=== PATIENT | female | born 1975 | race Caucasian/White ===

== ENCOUNTER 2017-02-21 22:29 | Inpatient (IN) | payer OTHER ==
[~2017-02-21] VITALS: Ht 165.1 cm; Wt 48.0 kg
[~2017-02-21 22:29] MED LIST: OMEP40CA6 PO
[2017-02-22 00:53] VITALS: BP 122/74; PULSE 129; RESP 21
[2017-02-22] MEDS ORDERED: ACETAMINOPHEN 325 MG TAB PO PRN (02:00)
[2017-02-22] MEDS ORDERED: traMADol 50 MG TAB PO PRN (02:00)
[2017-02-22] MEDS: ONDANSETRON 4 MG INJ IV PRN (02:08)
[2017-02-22] MEDS: morphine 4 MG/ML VIAL IV PRN ×3 (02:08→20:55)
[2017-02-22] MEDS: SOD CHLORIDE 0.9% 1,000 ML IV SCH ×2 (02:48→11:38)
[2017-02-22 05:54] LABS: ADD SCAN DIFF NO; BASOPHILS % 0.2 % (0.0-2.0); EOSINOPHILS # 0.1 10^3/ul (0.0-0.5); EOSINOPHILS % 0.4 % (0.0-7.0); HEMATOCRIT 34.3 % (37.0-47.0); HEMOGLOBIN 11.4 g/dl (12.0-16.0); LYMPHOCYTES # 1.1 10^3/ul (0.8-2.9); LYMPHOCYTES % 6.7 % (15.0-51.0); MEAN CORPUSCULAR HEMOGLOBIN 30.2 pg (29.0-33.0); MEAN CORPUSCULAR HGB CONC 33.2 g/dl (32.0-37.0); MEAN CORPUSCULAR VOLUME 90.7 fl (82.0-101.0); MEAN PLATELET VOLUME 10.2 fl (7.4-10.4); MONOCYTES % 6.1 % (0.0-11.0); NEUTROPHIL # 14.6 10^3/ul (1.6-7.5); PLATELET COUNT 158 10^3/UL (140-415); RED BLOOD COUNT 3.78 10^6/ul (4.20-5.40); RED CELL DISTRIBUTION WIDTH 13.4 % (11.5-14.5)
[2017-02-22 06:01] LABS: POTASSIUM 3.9 mmol/L (3.5-5.1)
[2017-02-22 06:03] LABS: CREATININE 0.7 mg/dl (0.44-1.00)
[2017-02-22 06:04] LABS: CALCIUM 8.3 mg/dl (8.4-10.2)
[2017-02-22] MEDS: PANTOPRAZOLE 40 MG INJ IV SCH (06:18)
[2017-02-22 08:37] VITALS: BP 118/77; RESP 18
[2017-02-22] MEDS ORDERED: CYCLOBENZAPRINE 10 MG TAB PO SCH (09:00)
[2017-02-22] MEDS: CYCLOBENZAPRINE 10 MG TAB PO SCH ×3 (09:17→20:55)
[2017-02-22] MEDS: LISINOPRIL 10 MG TAB PO SCH (09:17)
[2017-02-22] MEDS ORDERED: TOBRAMYCIN IV PER PHARMACY XX SCH (10:00)
[2017-02-22] MEDS: LEVOFLOXACIN 500MG/D5W (PMX) 100 ML IVPB SCH (11:38)
[2017-02-22] MEDS: TOBRAMYCIN 250 MG in SOD CHLORIDE 0.9% 100 ML IVPB SCH (13:22)
--- NOTE | 2017-02-22 17:11 | QN ---
Documentation Comment [id number] MARISA CUADRA MD February 22, 2017 17:11
--- NOTE | 2017-02-22 19:01 | HP ---
DATE OF ADMISSION: 02/22/2017 HISTORY OF PRESENT ILLNESS: Madhavi Lama is a 41-year-old female, initially was taken to [facility]. She was complaining of fever and chills, and back pain and some dysuria. The patient 's temperature was 36.9. The patient's pulse 62, blood pressure 133/74. The patient was noted to h ave urinalysis done, shows cloudy urine, WBC few, bacteria, 3+. The patient had a sodium of 138, po tassium 3.6, creatinine 0.82, glucose 133. The patient also noted to have respirations of 19. The patient was transferred to [facility] for further management. The patient's scan shows small right ovarian cyst with mild prominence of the right renal pelvis and right ureter. Ult rasound of the abdomen shows normal study. The patient was transferred with a diagnosis of pyelonep hritis. ALLERGY HISTORY: PENICILLIN. FAMILY HISTORY: Noncontributory. SOCIAL HISTORY: . MEDICATION HISTORY: Omeprazole. REVIEW OF SYSTEMS: HEENT: Unremarkable. RESPIRATORY: Unremarkable. CARDIOVASCULAR: Unremarkable. ABDOMEN: No hematuria. The patient has right flank pain. Abdomen unremarkable except as mentioned above. PHYSICAL EXAMINATION: GENERAL: The patient is awake, alert. VITAL SIGNS: Pulse 100, blood pressure 100/74, temperature 99.1. HEAD: Atraumatic, normocephalic. Pupils equal, reactive to light. NECK: Supple. No JVD. LUNGS: Clear. CARDIOVASCULAR: S1, S2 are normal. ABDOMEN: Soft, nontender. Bowel sounds present. No palpable mass. Right flank pain noted. EXTREMITIES: There is no cyanosis, clubbing, or edema. CENTRAL NERVOUS SYSTEM: The patient is awake, alert, no focal deficit. LABORATORY DATA: WBC 17, hematocrit 34.3. Sodium 130, potassium 3.9. IMPRESSION: 1. The patient has possible pyelonephritis. 2. Leukocytosis. 3. The patient's other diagnosis includes a . PLAN: Give this patient IV fluid. The patient is on tobramycin. The patient is on levofloxacin. The patient is on Flexeril, Protonix, IV fluid. UA C and S will be repeated. Dictated By: MARISA HACKETT/COLIN Conf#: [id number] DID#: [id number]
[2017-02-22 20:14] VITALS: BP 108/62; RESP 18
[2017-02-23] MEDS: SOD CHLORIDE 0.9% 1,000 ML IV SCH ×3 (00:38→17:42)
[2017-02-23] MEDS: PANTOPRAZOLE 40 MG INJ IV SCH (05:40)
[2017-02-23 05:42] LABS: ADD SCAN DIFF NO
[2017-02-23 06:02] LABS: BASOPHILS % 0.1 % (0.0-2.0); EOSINOPHILS # 0.1 10^3/ul (0.0-0.5); EOSINOPHILS % 0.6 % (0.0-7.0); HEMATOCRIT 33.6 % (37.0-47.0); LYMPHOCYTES # 1.2 10^3/ul (0.8-2.9); LYMPHOCYTES % 13.1 % (15.0-51.0); MEAN CORPUSCULAR HGB CONC 32.7 g/dl (32.0-37.0); MEAN CORPUSCULAR VOLUME 91.6 fl (82.0-101.0); MEAN PLATELET VOLUME 10.4 fl (7.4-10.4); MONOCYTE # 0.9 10^3/ul (0.3-0.9); MONOCYTES % 10.4 % (0.0-11.0); NEUTROPHIL # 6.7 10^3/ul (1.6-7.5); NEUTROPHILS % 75.3 % (39.0-77.0); PLATELET COUNT 153 10^3/UL (140-415); RED BLOOD COUNT 3.67 10^6/ul (4.20-5.40); RED CELL DISTRIBUTION WIDTH 13.6 % (11.5-14.5); WHITE BLOOD COUNT 8.9 10^3/ul (4.8-10.8)
[2017-02-23 06:14] LABS: ALBUMIN 2.9 g/dl (3.3-4.9); POTASSIUM 3.7 mmol/L (3.5-5.1)
[2017-02-23 06:16] LABS: CREATININE 0.81 mg/dl (0.44-1.00)
[2017-02-23 06:17] LABS: ALBUMIN/GLOBULIN RATIO 0.9; BILIRUBIN,INDIRECT 0.2 mg/dl (0-1.1); BILIRUBIN,TOTAL 0.2 mg/dl (0.2-1.3); TOTAL PROTEIN 6.1 g/dl (6.1-8.1)
[2017-02-23 06:18] LABS: CALCIUM 8.5 mg/dl (8.4-10.2)
[2017-02-23 08:56] VITALS: BP 124/60; RESP 20
[2017-02-23] MEDS: morphine 4 MG/ML VIAL IV PRN ×3 (09:41→22:25)
[2017-02-23] MEDS: CYCLOBENZAPRINE 10 MG TAB PO SCH ×3 (09:42→20:44)
[2017-02-23] MEDS: LEVOFLOXACIN 500MG/D5W (PMX) 100 ML IVPB SCH (09:42)
[2017-02-23] MEDS: LISINOPRIL 10 MG TAB PO SCH (09:42)
[2017-02-23] MEDS: TOBRAMYCIN 250 MG in SOD CHLORIDE 0.9% 100 ML IVPB SCH (12:20)
[2017-02-23 20:26] VITALS: BP 112/72; RESP 18
--- NOTE | 2017-02-23 23:19 | PN ---
Date/Time of Note Date/Time of Note DATE: 02/23/17 TIME: 23:18 Assessment/Plan VTE Prophylaxis VTE Prophylaxis Intervention: other Lines/Catheters IV Catheter Type (from [facility]): Peripheral IV Urinary Cath still in place: No Assessment/Plan Chief Complaint/Hosp Course IMPRESSION: 1. The patient has possible pyelonephritis. 2. Leukocytosis. 3. The patient's other diagnosis includes a . plan antibiotic Problems: Subjective 24 Hr Interval Summary Respiratory: no complaints Gastrointestinal: no complaints Genitourinary: no complaints Exam/Review of Systems Vital Signs Vitals Vital Signs Date Time Temp Pulse Resp B/P Pulse Ox O2 Delivery O2 Flow Rate FiO2 02/23/17 20:26 98.7 110 18 112/72 96 02/22/17 00:53 Room Air Intake and Output 02/22/17 02/22/17 02/23/17 15:00 23:00 07:00 Intake Total 1006.25 ml 1370 ml 2000 ml Output Total 850 ml Balance 1006.25 ml 1370 ml 1150 ml Exam Neck: supple Respiratory: clear to auscultation Cardiovascular: regular rate and rhythm Gastrointestinal: soft Results Result Diagram: 02/23/17 0520 02/23/17 0520 Results 24 hrs Laboratory Tests Test 02/23/17 05:20 White Blood Count 8.9 # Red Blood Count 3.67 L Hemoglobin 11.0 L Hematocrit 33.6 L Mean Corpuscular Volume 91.6 Mean Corpuscular Hemoglobin 30.0 Mean Corpuscular Hemoglobin Concent 32.7 Red Cell Distribution Width 13.6 Platelet Count 153 Mean Platelet Volume 10.4 Neutrophils % 75.3 Lymphocytes % 13.1 L Monocytes % 10.4 Eosinophils % 0.6 Basophils % 0.1 Nucleated Red Blood Cells % 0.0 Neutrophils # 6.7 Lymphocytes # 1.2 Monocytes # 0.9 Eosinophils # 0.1 Basophils # 0.0 Nucleated Red Blood Cells # 0.0 Sodium Level 140 Potassium Level 3.7 Chloride Level 106 Carbon Dioxide Level 25 Anion Gap 13 Blood Urea Nitrogen 5 L Creatinine 0.81 Glucose Level 120 Calcium Level 8.5 Total Bilirubin 0.2 Direct Bilirubin 0.00 Indirect Bilirubin 0.2 Aspartate Amino Transf (AST/SGOT) 25 Alanine Aminotransferase (ALT/SGPT) 34 Alkaline Phosphatase 73 Total Protein 6.1 Albumin 2.9 L Globulin 3.20 Albumin/Globulin Ratio 0.90 Medications Medications Current Medications Sodium Chloride (NS) 1,000 ml @ 100 mls/hr Q10H IV Last administered on 12:21; Admin Dose 100 MLS/HR; Start 02/22/17 at 02:00 Morphine Sulfate (morphine) 3 mg Q4H PRN IV pain Last administered on 22:25; Admin Dose 3 MG; Start 02/22/17 at 02:00 Ondansetron HCl (Zofran Inj) 4 mg Q6H PRN IV NAUSEA AND/OR VOMITING Last administered on 02/22/17 02:08; Admin Dose 4 MG; Start 02/22/17 at 02:00 Acetaminophen (Tylenol Tab) 650 mg Q4H PRN PO PAIN AND OR ELEVATED TEMP Last administered on 02/22/17 13:22; Admin Dose 650 MG; Start 02/22/17 at 02:00 Tramadol HCl (Ultram) 50 mg Q6H PRN PO PAIN; Start 02/22/17 at 02:00 Lisinopril (Zestril) 10 mg DAILY PO Last administered on 02/23/17 09:42; Admin Dose 10 MG; Start 02/22/17 at 09:00 Cyclobenzaprine HCl (Flexeril) 10 mg TID PO Last administered on 02/23/17 20: 44; Admin Dose 10 MG; Start 02/22/17 at 09:00 Tobramycin TOBRAMYCIN PER PHARMACY NOTE XX ; Start 02/22/17 at 10:00 Levofloxacin/ Dextrose 100 ml @ 100 mls/hr Q24H IVPB Last administered on 02/23 09:42; Admin Dose 100 MLS/HR; Start 02/22/17 at 10:00 Tobramycin/Sodium Chloride (Tobramycin/NS) 106.25 ml @ 103.75 mls/hr Q24H IVPB Last administered on 02/23/17 12:20; Admin Dose 103.75 MLS/HR; Start at 12:00 Pantoprazole (Protonix Tab) 40 mg DAILY@06 PO ; Start 02/24/17 at 06:00 MARISA CUADRA MD February 23, 2017 23:19
[2017-02-24] MEDS: PANTOPRAZOLE (EC) 40 MG TAB PO SCH (05:32)
[2017-02-24] MEDS: SOD CHLORIDE 0.9% 1,000 ML IV SCH ×3 (05:34→17:09)
[2017-02-24 08:11] VITALS: BP 109/75; RESP 20
[2017-02-24] MEDS: LISINOPRIL 10 MG TAB PO SCH (08:16)
[2017-02-24] MEDS: CYCLOBENZAPRINE 10 MG TAB PO SCH ×3 (08:16→20:29)
[2017-02-24] MEDS: LEVOFLOXACIN 500MG/D5W (PMX) 100 ML IVPB SCH (09:37)
[2017-02-24] MEDS: morphine 4 MG/ML VIAL IV PRN ×2 (09:37→17:08)
[2017-02-24] MEDS: TOBRAMYCIN 250 MG in SOD CHLORIDE 0.9% 100 ML IVPB SCH (13:06)
[2017-02-24] MEDS: ONDANSETRON 4 MG INJ IV PRN ×2 (17:09→23:12)
[2017-02-24 20:49] VITALS: BP 118/82; RESP 16
--- NOTE | 2017-02-24 22:46 | PN ---
Date/Time of Note Date/Time of Note DATE: 02/24/17 TIME: 22:46 Assessment/Plan VTE Prophylaxis VTE Prophylaxis Intervention: other Lines/Catheters IV [facility] (from [facility] Peripheral IV Urinary Cath still in place: No Assessment/Plan Chief Complaint/Hosp Course IMPRESSION: 1. The patient has possible pyelonephritis. 2. Leukocytosis. 3. The patient's other diagnosis includes a . plan antibiotic home soon Problems: Subjective 24 Hr Interval Summary Cardiovascular: no complaints Gastrointestinal: no complaints Exam/Review of Systems Vital Signs Vitals Vital Signs Date Time Temp Pulse Resp B/P Pulse Ox O2 Delivery O2 Flow Rate FiO2 02/24/17 20:49 97.5 104 16 118/82 96 02/22/17 00:53 Room Air Intake and Output 02/23/17 02/23/17 02/24/17 15:00 23:00 07:00 Intake Total 706.25 ml 750 ml 1350 ml Output Total 500 ml Balance 706.25 ml 750 ml 850 ml Exam Respiratory: clear to auscultation Cardiovascular: regular rate and rhythm Gastrointestinal: soft Results Result Diagram: 02/23/17 0520 02/23/17 0520 Medications Medications Current Medications Sodium Chloride (NS) 1,000 ml @ 100 mls/hr Q10H IV Last administered on 17:09; Admin Dose 100 MLS/HR; Start 02/22/17 at 02:00 Morphine Sulfate (morphine) 3 mg Q4H PRN IV pain Last administered on 17:08; Admin Dose 3 MG; Start 02/22/17 at 02:00 Ondansetron HCl (Zofran Inj) 4 mg Q6H PRN IV NAUSEA AND/OR VOMITING Last administered on 02/24/17 17:09; Admin Dose 4 MG; Start 02/22/17 at 02:00 Acetaminophen (Tylenol Tab) 650 mg Q4H PRN PO PAIN AND OR ELEVATED TEMP Last administered on 02/22/17 13:22; Admin Dose 650 MG; Start 02/22/17 at 02:00 Tramadol HCl (Ultram) 50 mg Q6H PRN PO PAIN; Start 02/22/17 at 02:00 Lisinopril (Zestril) 10 mg DAILY PO Last administered on 02/23/17 09:42; Admin Dose 10 MG; Start 02/22/17 at 09:00 Cyclobenzaprine HCl (Flexeril) 10 mg TID PO Last administered on 02/24/17 20: 29; Admin Dose 10 MG; Start 02/22/17 at 09:00 Tobramycin TOBRAMYCIN PER PHARMACY NOTE XX ; Start 02/22/17 at 10:00 Levofloxacin/ Dextrose 100 ml @ 100 mls/hr Q24H IVPB Last administered on 02/24 09:37; Admin Dose 100 MLS/HR; Start 02/22/17 at 10:00 Tobramycin/Sodium Chloride (Tobramycin/NS) 106.25 ml @ 103.75 mls/hr Q24H IVPB Last administered on 02/24/17 13:06; Admin Dose 103.75 MLS/HR; Start at 12:00 Pantoprazole (Protonix Tab) 40 mg DAILY@06 PO Last administered on 02/24/17 05 :32; Admin Dose 40 MG; Start 02/24/17 at 06:00 MARISA CUADRA MD February 24, 2017 22:46
[2017-02-25] MEDS: SOD CHLORIDE 0.9% 1,000 ML IV SCH ×2 (04:12→17:19)
[2017-02-25] MEDS: morphine 4 MG/ML VIAL IV PRN ×3 (04:29→17:24)
[2017-02-25] MEDS: PANTOPRAZOLE (EC) 40 MG TAB PO SCH (05:53)
[2017-02-25 07:10] VITALS: BP 101/74; RESP 16
[2017-02-25] MEDS: LISINOPRIL 10 MG TAB PO SCH (08:21)
[2017-02-25] MEDS: CYCLOBENZAPRINE 10 MG TAB PO SCH ×2 (08:21→13:23)
[2017-02-25] MEDS: LEVOFLOXACIN 500MG/D5W (PMX) 100 ML IVPB SCH (09:42)
--- NOTE | 2017-02-25 12:01 | PN ---
Date/Time of Note Date/Time of Note DATE: 02/25/17 TIME: 12:00 Assessment/Plan VTE Prophylaxis VTE Prophylaxis Intervention: ambulation Lines/Catheters IV Catheter Type (from [facility]): Peripheral IV Urinary Cath still in place: No Assessment/Plan Chief Complaint/Hosp Course 1. The patient has right kidney pyelonephritis. 2. Leukocytosis. 3. hs Problems: Assessment/Plan 1. Continue a/b Subjective 24 Hr Interval Summary Constitutional: improved, no complaints Respiratory: no complaints Cardiovascular: no complaints Gastrointestinal: decreased appetite Genitourinary: flank pain (right side) Exam/Review of Systems Vital Signs Vitals Vital Signs Date Time Temp Pulse Resp B/P Pulse Ox O2 Delivery O2 Flow Rate FiO2 02/25/17 07:10 98.3 90 16 101/74 98 02/22/17 00:53 Room Air Intake and Output 02/24/17 02/24/17 02/25/17 15:00 23:00 07:00 Intake Total 206.25 ml 1780 ml 1660 ml Balance 206.25 ml 1780 ml 1660 ml Exam Constitutional: alert, oriented Psych: no complaints Head: normocephalic Respiratory: clear to auscultation Cardiovascular: regular rate and rhythm Genitourinary - Female: CVA tenderness (right side), nl adnexae Results Result Diagram: 02/23/1751902/23/17519 Medications Medications Current Medications Sodium Chloride (NS) 1,000 ml @ 100 mls/hr Q10H IV Last administered on 04:12; Admin Dose 100 MLS/HR; Start 02/22/17 at 02:00 Morphine Sulfate (morphine) 3 mg Q4H PRN IV pain Last administered on 10:30; Admin Dose 3 MG; Start 02/22/17 at 02:00 Ondansetron HCl (Zofran Inj) 4 mg Q6H PRN IV NAUSEA AND/OR VOMITING Last administered on 02/24/17 23:12; Admin Dose 4 MG; Start 02/22/17 at 02:00 Acetaminophen (Tylenol Tab) 650 mg Q4H PRN PO PAIN AND OR ELEVATED TEMP Last administered on 02/22/17 13:22; Admin Dose 650 MG; Start 02/22/17 at 02:00 Tramadol HCl (Ultram) 50 mg Q6H PRN PO PAIN; Start 02/22/17 at 02:00 Lisinopril (Zestril) 10 mg DAILY PO Last administered on 02/23/17 09:42; Admin Dose 10 MG; Start 02/22/17 at 09:00 Cyclobenzaprine HCl (Flexeril) 10 mg TID PO Last administered on 02/25/17 08: 21; Admin Dose 10 MG; Start 02/22/17 at 09:00 Tobramycin TOBRAMYCIN PER PHARMACY NOTE XX ; Start 02/22/17 at 10:00 Levofloxacin/ Dextrose 100 ml @ 100 mls/hr Q24H IVPB Last administered on 02/25 09:42; Admin Dose 100 MLS/HR; Start 02/22/17 at 10:00 Tobramycin/Sodium Chloride (Tobramycin/NS) 106.25 ml @ 103.75 mls/hr Q24H IVPB Last administered on 02/24/17 13:06; Admin Dose 103.75 MLS/HR; Start at 12:00 Pantoprazole (Protonix Tab) 40 mg DAILY@06 PO Last administered on 02/25/17 05 :53; Admin Dose 40 MG; Start 02/24/17 at 06:00 CYRUS FALK February 25, 2017 12:01
[2017-02-25] MEDS: ONDANSETRON 4 MG INJ IV PRN (13:23)
[2017-02-25] MEDS: TOBRAMYCIN 250 MG in SOD CHLORIDE 0.9% 100 ML IVPB SCH (13:56)
--- NOTE | 2017-02-25 18:07 | PDOCDIS ---
Discharge Instructions CONDITION Patient Condition: Stable HOME CARE INSTRUCTIONS: Special Diet: full liquids ACTIVITY: Activity Restrictions: Slowly Increase Activity FOLLOW UP/APPOINTMENTS Appointments f/u own pcp 1 wk MARISA CUADRA MD February 25, 2017 18:07
[2017-02-25] MEDS ORDERED: SULF1TAB31 PO (18:08)
== END 2017-02-25 18:56 | disposition home or self-care (01) | DRG 690 ==
LOC: PP2 02-22 00:39
PROVIDERS: ADMIT Internal Medicine Nephrology; ATTEND Internal Medicine Nephrology
DX: N12 Tubulo-interstitial nephritis, not specified as acute or chronic (principal)
CPT/HCPCS: 80048; 80053; 80200; 85025; 87086; C9113; J1956; J2270; J2405; J3260; J7030

== ENCOUNTER 2017-06-15 22:53 | Inpatient (IN) | payer OTHER ==
[~2017-06-15] VITALS: Ht 149.9 cm; Wt 52.0 kg
[~2017-06-15 22:53] MED LIST changes: +SULF1TAB31 PO
[2017-06-16 00:25] VITALS: Ht 149.9 cm; Wt 52.0 kg
[2017-06-16 01:10] VITALS: BP 117/81; RESP 19
[2017-06-16] MEDS ORDERED: LORATADINE 10 MG TAB PO PRN (02:00)
[2017-06-16] MEDS ORDERED: CYCLOBENZAPRINE 10 MG TAB PO PRN (02:00)
[2017-06-16] MEDS: morphine 2 MG INJ IV PRN ×5 (02:15→20:05)
[2017-06-16] MEDS: CEFTRIAXONE 1 GM/50 ML (PMX) 50 ML IVPB SCH (02:17)
[2017-06-16] MEDS: SOD CHLORIDE 0.9% 1,000 ML IV SCH (02:17)
[2017-06-16 05:58] LABS: ABNORMAL IP MESSAGE 1; BASOPHILS % 0.4 % (0.0-2.0); HEMATOCRIT 35.8 % (37.0-47.0); HEMOGLOBIN 11.8 g/dl (12.0-16.0); LYMPHOCYTES # 0.5 10^3/ul (0.8-2.9); MEAN CORPUSCULAR HEMOGLOBIN 28.7 pg (29.0-33.0); MEAN CORPUSCULAR VOLUME 87.1 fl (82.0-101.0); MEAN PLATELET VOLUME 10.6 fl (7.4-10.4); MONOCYTE # 0.3 10^3/ul (0.3-0.9); MONOCYTES % 13.2 % (0.0-11.0); NEUTROPHIL # 1.7 10^3/ul (1.6-7.5); PLATELET COUNT 98 10^3/UL (140-415); RED BLOOD COUNT 4.11 10^6/ul (4.20-5.40); RED CELL DISTRIBUTION WIDTH 13.2 % (11.5-14.5); WHITE BLOOD COUNT 2.5 10^3/ul (4.8-10.8)
[2017-06-16] MEDS ORDERED: PANTOPRAZOLE 40 MG INJ IV SCH (06:00)
[2017-06-16 06:08] LABS: POSITIVE DIFF @See below
[2017-06-16 06:38] LABS: ALBUMIN 3.1 g/dl (3.3-4.9); ALBUMIN/GLOBULIN RATIO 1.1; BILIRUBIN,INDIRECT 0.1 mg/dl (0-1.1); BILIRUBIN,TOTAL 0.1 mg/dl (0.2-1.3); CALCIUM 8.1 mg/dl (8.4-10.2); CREATININE 0.69 mg/dl (0.44-1.00); POTASSIUM 3.6 mmol/L (3.5-5.1); TOTAL PROTEIN 5.9 g/dl (6.1-8.1)
[2017-06-16 08:00] VITALS: BP 129/73; RESP 20
[2017-06-16] MEDS ORDERED: VANCOMYCIN IV PER PHARMACY XX SCH (08:00)
[2017-06-16] MEDS ORDERED: VANCOMYCIN 1 GM (PMX) 250 ML IVPB SCH (08:00)
[2017-06-16] MEDS: BENAZEPRIL 10 MG TAB PO SCH (08:49)
[2017-06-16] MEDS: HYDROCHLOROTHIAZIDE 25 MG TAB PO SCH (08:49)
[2017-06-16] MEDS: ACETAMINOPHEN 325 MG TAB PO PRN ×2 (09:15→20:14)
[2017-06-16] MEDS ORDERED: VANCOMYCIN 1.25 GM in SOD CHLORIDE 0.9% 250 ML IVPB SCH (09:30)
[2017-06-16 14:00] VITALS: BP 105/59; RESP 18
--- NOTE | 2017-06-16 17:29 | QN ---
Documentation Comment [id number] MARISA CUADRA MD Jun 16, 2017 17:29
[2017-06-16 19:23] LABS: ADD UMIC YES; UR ASCORBIC ACID NEGATIVE (NEGATIVE); UR BACTERIA FEW /HPF (NONE SEEN); UR BILIRUBIN (Dip) NEGATIVE (NEGATIVE); UR BLOOD (Dip) 2+ mg/dL (NEGATIVE); UR CLARITY CLEAR (CLEAR); UR COLOR YELLOW (YELLOW); UR GLUCOSE (Dip) NEGATIVE (NEGATIVE); UR KETONES (Dip) 1+ mg/dL (NEGATIVE); UR LEUKOCYTE ESTERASE (Dip) NEGATIVE Leu/ul (NEGATIVE); UR NITRITE (Dip) NEGATIVE (NEGATIVE); UR RBC 7 /HPF (0-5); UR SPECIFIC GRAVITY (Dip) 1.011 (1.003-1.030); UR SQUAMOUS EPITHELIAL CELL FEW /HPF (FEW); UR TOTAL PROTEIN (Dip) NEGATIVE (NEGATIVE); UR UROBILINOGEN (Dip) NEGATIVE (NEGATIVE)
--- NOTE | 2017-06-16 20:50 | HP ---
DATE OF ADMISSION: 06/16/2017 HISTORY OF PRESENT ILLNESS: Patient is a 42-year-old female with history of hypertension, history of degenerative disc disease. Patient sees her pain doctor as an outpatient. Patient had epidural shot almost a month ago. Then, 2-1/2 weeks after the shot, patient developed back pain, pain radiating to the right lower extremity and the lower back, and developed fever. Patient went to [facility] ER where she was evaluated and transferred here. WBC 2.5, hematocrit 35.8, platelet count of 98,000. Sodium 137, potassium 3.6, albumin 3.1. MRI of the spine is pending. Infectious Disease consultation has been requested from Dr. Lenz. Dr. Gentile is covering for . PAST MEDICAL HISTORY: As mentioned, hypertension, history of epidural shot in the past. ALLERGIES: PENICILLIN. SOCIAL HISTORY: Negative. FAMILY HISTORY: Negative. MEDICATIONS: Patient currently is on benazepril, Flexeril, hydrochlorothiazide, loratadine, morphine, Protonix, Tramadol, vanco. REVIEW OF SYSTEMS: HEENT: Unremarkable. RESPIRATORY: Unremarkable. CVS: Unremarkable. ABDOMEN: As mentioned above. EXTREMITIES: As mentioned. SOLAR INSTALLER TECHNICIAN: Unremarkable except as mentioned. PHYSICAL EXAMINATION: GENERAL: Patient is awake, alert. VITAL SIGNS: Stable. HEENT: Head is atraumatic, normocephalic. Pupils equal, reactive to light. NECK: Supple. There is no JVD. LUNGS: Clear. CARDIAC: S1, S2 normal. ABDOMEN: Soft, nontender. Bowel sounds heard. No palpable mass. EXTREMITIES: No cyanosis, clubbing, edema. SOLAR INSTALLER TECHNICIAN: Patient is awake, alert, moving both upper and lower extremities with low back pain noted. IMPRESSION: 1. Patient has low back pain. 2. Patient has history of degenerative disc disease. 3. Doubt patient has diskitis. 4. History of sciatica. 5. History of hypertension. 6. Neutropenia. PLAN: Give this patient low salt diet. Continue home medication. Infectious Disease consultation, antibiotic, MRI of the lower spine is pending. Dictated By: Carlos Gonzalez MD /medina/theron /Document#: [id number] QUAN
[2017-06-16 21:01] VITALS: BP 108/65; RESP 21
[2017-06-16] MEDS ORDERED: morphine 2 MG INJ IV ONE (22:00)
[2017-06-16] MEDS: VANCOMYCIN 500MG/NS (PMX) 100 ML IVPB SCH (22:00)
[2017-06-16] MEDS ORDERED: morphine 10 MG INJ IM ONE (22:00)
--- NOTE | 2017-06-16 22:06 | RADRPT ---
PROCEDURE: MRI Lumbar Spine without contrast. CLINICAL INDICATION: 42-year-old female with lumbar spine pain after epidural injection. TECHNIQUE: An MRI of the lumbar spine was performed with multiple sequences in the sagittal and ax ial planes without contrast. Images reviewed on a high-resolution PACS system. COMPARISON: None available at the time of dictation. FINDINGS: The alignment of the lumbar spine is normal. No vertebral body subluxation is seen. There is desic cation the L5-S1 disc-space without significant loss of disc-space height. There are no significant discogenic endplate changes at this level. The remaining intervertebral discs are normal in height a nd signal intensity. The vertebral body heights and marrow signal are normal. The conus medullaris is visible at the L1 level and appears grossly normal. The lumbar nerve roots are normal in appea missy. The paraspinal soft tissues are unremarkable. No significant paraspinal soft tissue swelling . L1-L2: The posterior margin of the disc is normal in appearance. No significant disc bulge or prot rusion is evident. The central canal and neural foramina are adequately patent. L2-L3: The posterior margin of the disc is normal in appearance. No significant disc bulge or prot rusion is evident. The central canal and neural foramina are adequately patent. L3-L4: The posterior margin of the disc is normal in appearance. No significant disc bulge or prot rusion is evident. The central canal and neural foramina are adequately patent. L4-L5: There is a 1 mm annular disc bulge without significant indentation on the ventral thecal sac . The thecal sac and lateral recesses are patent. There is mild bilateral facet spondylosis. The neural foramina are patent. L5-S1: There is a 2-3 mm posterior central disc bulge. There is mild narrowing of both lateral rece sses. The central thecal sac is patent measuring 11 mm midline AP diameter. There is mild bilateral facet spondylosis. There is moderate bilateral neural foraminal narrowing. IMPRESSION: 1. Moderate spondylosis at L5-S1 with subsequent mild effacement of both lateral recesses and moder ate bilateral neural foraminal narrowing. No significant central stenosis. 2. The remaining lumbar spine is normal in appearance. 3. No evidence of epidural hemorrhage or sequelae of patient's epidural injection. RPTAT: HGAS .Giancarlo Lawler MD, MD Date Time Electronically viewed and signed by .Giancarlo Lawler MD, MD on 06/16/2017 22:05 .S/
[2017-06-17] MEDS: SOD CHLORIDE 0.9% 1,000 ML IV SCH ×2 (02:00→22:17)
[2017-06-17] MEDS: CEFTRIAXONE 1 GM/50 ML (PMX) 50 ML IVPB SCH (02:38)
[2017-06-17] MEDS: morphine 2 MG INJ IV PRN ×3 (02:49→13:37)
[2017-06-17 02:51] VITALS: BP 105/55; RESP 18
[2017-06-17] MEDS: PANTOPRAZOLE (EC) 40 MG TAB PO SCH (05:37)
[2017-06-17 06:00] LABS: ABNORMAL IP MESSAGE 1; HEMATOCRIT 37.2 % (37.0-47.0); HEMOGLOBIN 12.4 g/dl (12.0-16.0); MEAN CORPUSCULAR HEMOGLOBIN 29.2 pg (29.0-33.0); MEAN CORPUSCULAR HGB CONC 33.3 g/dl (32.0-37.0); MEAN CORPUSCULAR VOLUME 87.5 fl (82.0-101.0); MEAN PLATELET VOLUME 11.5 fl (7.4-10.4); PLATELET COUNT 85 10^3/UL (140-415); RED BLOOD COUNT 4.25 10^6/ul (4.20-5.40); RED CELL DISTRIBUTION WIDTH 13.2 % (11.5-14.5); WHITE BLOOD COUNT 2.6 10^3/ul (4.8-10.8)
[2017-06-17 06:27] LABS: ALBUMIN 3.2 g/dl (3.3-4.9); ALBUMIN/GLOBULIN RATIO 1.1; BILIRUBIN,INDIRECT 0.1 mg/dl (0-1.1); BILIRUBIN,TOTAL 0.1 mg/dl (0.2-1.3); CALCIUM 8.8 mg/dl (8.4-10.2); CREATININE 0.75 mg/dl (0.44-1.00); POTASSIUM 3.1 mmol/L (3.5-5.1); TOTAL PROTEIN 6.1 g/dl (6.1-8.1)
[2017-06-17 06:31] LABS: POSITIVE DIFF @See below
[2017-06-17 08:00] VITALS: BP 107/69; RESP 18
[2017-06-17] MEDS: VANCOMYCIN 500MG/NS (PMX) 100 ML IVPB SCH (08:11)
--- NOTE | 2017-06-17 08:57 | PN ---
Date/Time of Note Date/Time of Note DATE: 06/17/17 TIME: 08:55 Assessment/Plan VTE Prophylaxis VTE Prophylaxis Intervention: ambulation Lines/Catheters IV Catheter Type (from [facility]): [place] Assessment/Plan Chief Complaint/Hosp Course 1. Patient has low back pain. 2. History of degenerative disc disease. 3. R/o diskitis. 4. History of sciatica. 5. Hypertension, controlled. 6. Neutropenia. 7.MRI lumbar area showed : 1). Moderate spondylosis at L5-S1 with subsequent mild effacement of both lateral recesses and moderate bilateral neural foraminal narrowing. No significant central stenosis. 2). The remaining lumbar spine is normal in appearance. 3). No evidence of epidural hemorrhage or sequelae of patient's epidural injection. 8. Hypopotassemia Problems: Assessment/Plan 1. K replacement Subjective 24 Hr Interval Summary Gastrointestinal: no complaints Musculoskeletal: back pain Exam/Review of Systems Vital Signs Vitals Vital Signs Date Time Temp Pulse Resp B/P Pulse Ox O2 Delivery O2 Flow Rate FiO2 06/17/17 08:00 98.3 68 18 107/69 98 Intake and Output 06/16/17 06/16/17 06/17/17 15:00 23:00 07:00 Intake Total 250 ml 1390 ml 1430 ml Balance 250 ml 1390 ml 1430 ml Exam Constitutional: alert, oriented Respiratory: clear to auscultation Cardiovascular: regular rate and rhythm Musculoskeletal: range of motion (decreased lumbar area) Results Result Diagram: 06/17/17 0427 06/17/17 0427 Results 24 hrs Laboratory Tests Test 06/16/17 18:00 06/17/17 04:27 Urine Color YELLOW Urine Clarity CLEAR Urine pH 6.0 Urine Specific [employer] 1.011 Urine Ketones 1+ H Urine Nitrite NEGATIVE Urine Bilirubin NEGATIVE Urine Urobilinogen NEGATIVE Urine Leukocyte Esterase NEGATIVE Urine Microscopic RBC 7 H Urine Microscopic WBC 0 Urine Squamous Epithelial Cells FEW Urine Bacteria FEW A Urine Hemoglobin 2+ H Urine Glucose NEGATIVE Urine Total Protein NEGATIVE White Blood Count 2.6 L Red Blood Count 4.25 Hemoglobin 12.4 Hematocrit 37.2 Mean Corpuscular Volume 87.5 Mean Corpuscular Hemoglobin 29.2 Mean Corpuscular Hemoglobin Concent 33.3 Red Cell Distribution Width 13.2 Platelet Count 85 L Mean Platelet Volume 11.5 H Neutrophils % Lymphocytes % Monocytes % Eosinophils % Basophils % Nucleated Red Blood Cells % 0.0 Neutrophils # Lymphocytes # Monocytes # Eosinophils # Basophils # Nucleated Red Blood Cells # Sodium Level 138 Potassium Level 3.1 L Chloride Level 101 Carbon Dioxide Level 31 Anion Gap 9 Blood Urea Nitrogen 6 L Creatinine 0.75 Glucose Level 98 Calcium Level 8.8 Total Bilirubin 0.1 L Direct Bilirubin 0.00 Indirect Bilirubin 0.1 Aspartate Amino Transf (AST/SGOT) 31 Alanine Aminotransferase (ALT/SGPT) 35 Alkaline Phosphatase 53 Total Protein 6.1 Albumin 3.2 L Globulin 2.90 Albumin/Globulin Ratio 1.10 Medications Medications Current Medications Morphine Sulfate 2 mg 2 mg Q4H PRN IV PAIN Last administered on 06/17/17 08:13 ; Admin Dose 2 MG; Start 06/16/17 at 02:00 Ceftriaxone Sodium 50 ml @ 100 mls/hr Q24H IVPB Last administered on 02:38; Admin Dose 100 MLS/HR; Start 06/16/17 at 02:00 Sodium Chloride (NS) 1,000 ml @ 30 mls/hr Q24H IV Last administered on 02:17; Admin Dose 30 MLS/HR; Start 06/16/17 at 02:00 Tramadol HCl (Ultram) 50 mg Q6H PRN PO PAIN; Start 06/16/17 at 02:00 Cyclobenzaprine HCl (Flexeril) 10 mg BID PRN PO MUSCLE SPASMS; Start 06/16/17 at 02:00 Hydrochlorothiazide (Hydrochlorothiazide) 25 mg DAILY PO Last administered on 08:49; Admin Dose 25 MG; Start 06/16/17 at 09:00 Benazepril HCl (Lotensin) 10 mg DAILY PO Last administered on 06/16/17 08:49; Admin Dose 10 MG; Start 06/16/17 at 09:00 Loratadine (Claritin) 10 mg DAILY PRN PO ALLERGIC REACTION; Start 06/16/17 at 02:00 Acetaminophen 650 mg 650 mg Q6H PRN PO PAIN AND OR ELEVATED TEMP Last administered on 06/16/17 20:14; Admin Dose 650 MG; Start 06/16/17 at 06:30 Vancomycin HCl (Vancocin) 100 ml @ 100 mls/hr Q12H IVPB Last administered on 9 /15/17at 08:11; Admin Dose 100 MLS/HR; Start 06/16/17 at 21:00 Miscellaneous Information (*Rx Drug Level Order Reminder*) VANCO TR LEVEL PRIOR... ONCE ONCE XX ; Start 06/17/17 at 20:00; Stop 06/17/17 at 20:01 Pantoprazole (Protonix Tab) 40 mg DAILY@06 PO Last administered on 06/17/17t 05 :37; Admin Dose 40 MG; Start 06/17/17 at 06:00 CYRUS FALK Jun 17, 2017 08:57
[2017-06-17] MEDS ORDERED: POTASSIUM CHLORIDE 20 MEQ POWDER FOR ORAL SOLN PO ONE (09:00)
[2017-06-17] MEDS: BENAZEPRIL 10 MG TAB PO SCH (09:25)
[2017-06-17] MEDS: HYDROCHLOROTHIAZIDE 25 MG TAB PO SCH (09:26)
[2017-06-17 09:37] LABS: ANISOCYTOSIS 1+ (0-0); GIANT THROMBO% (M) 1 % (0-0); MICROCYTOSIS 1+ (0-0); MONOCYTES % (M) 17 % (0-11); PLATELET ESTIMATE DECREASED; POLYCHROMASIA 3+ (0-0); REACTIVE LYMPHOCYTES% (M) 8 % (0-0)
[2017-06-17 14:00] VITALS: BP 117/74; RESP 20
[2017-06-17] MEDS: HYDROCODONE/APAP (5/325) TAB PO PRN ×2 (17:38→22:47)
[2017-06-17 19:33] VITALS: BP 104/69; RESP 16
--- NOTE | 2017-06-17 21:39 | CONS ---
Date/Time of Note Date/Time of Note DATE: 06/17/17 TIME: 21:38 Assessment/Plan Assessment/Plan Chief Complaint/Hosp Course Pt had + UA at another facility, recommend complete treatment for UTI with oral Cipro Problems: Consultation Date/Type/Reason Admit Date/Time Jun 16, 2017 at 00:01 Initial Consult Date Type of Consultation: ID Exam/Review of Systems Vital Signs Vitals Vital Signs Date Time Temp Pulse Resp B/P Pulse Ox O2 Delivery O2 Flow Rate FiO2 06/17/17 19:33 98.0 93 16 104/69 98 Intake and Output 06/16/17 06/16/17 06/17/17 15:00 23:00 07:00 Intake Total 250 ml 1390 ml 1430 ml Balance 250 ml 1390 ml 1430 ml Results Result Diagram: 06/17/17 0427 06/17/17 0427 Results 24 hrs Laboratory Tests Test 06/17/17 04:27 White Blood Count 2.6 L Red Blood Count 4.25 Hemoglobin 12.4 Hematocrit 37.2 Mean Corpuscular Volume 87.5 Mean Corpuscular Hemoglobin 29.2 Mean Corpuscular Hemoglobin Concent 33.3 Red Cell Distribution Width 13.2 Platelet Count 85 L Mean Platelet Volume 11.5 H Neutrophils % Segmented Neutrophils % (Manual) 31 L Band Neutrophils % (Manual) 5 H Lymphocytes % Lymphocytes % (Manual) 40 Reactive Lymphocytes % (Manual) 8 H Monocytes % Monocytes % (Manual) 17 H Eosinophils % Basophils % Nucleated Red Blood Cells % 0.0 Neutrophils # Neutrophils # (Manual) 0.8 L Band Neutrophils # 0.1 Absolute Lymphocytes (Manual) 1.0 Lymphocytes # Reactive Lymphocytes # 0.2 H Monocytes # Absolute Monocytes (Manual) 0.4 Eosinophils # Basophils # Nucleated Red Blood Cells # Platelet Estimate DECREASED Giant Platelets 1 H Polychromasia 3+ Anisocytosis 1+ Microcytosis 1+ Sodium Level 138 Potassium Level 3.1 L Chloride Level 101 Carbon Dioxide Level 31 Anion Gap 9 Blood Urea Nitrogen 6 L Creatinine 0.75 Glucose Level 98 Calcium Level 8.8 Total Bilirubin 0.1 L Direct Bilirubin 0.00 Indirect Bilirubin 0.1 Aspartate Amino Transf (AST/SGOT) 31 Alanine Aminotransferase (ALT/SGPT) 35 Alkaline Phosphatase 53 Total Protein 6.1 Albumin 3.2 L Globulin 2.90 Albumin/Globulin Ratio 1.10 Medications Medications Current Medications Morphine Sulfate 2 mg 2 mg Q4H PRN IV PAIN Last administered on 06/17/17 13:37 ; Admin Dose 2 MG; Start 06/16/17 at 02:00 Ceftriaxone Sodium 50 ml @ 100 mls/hr Q24H IVPB Last administered on 02:38; Admin Dose 100 MLS/HR; Start 06/16/17 at 02:00 Sodium Chloride (NS) 1,000 ml @ 30 mls/hr Q24H IV Last administered on 02:17; Admin Dose 30 MLS/HR; Start 06/16/17 at 02:00 Tramadol HCl (Ultram) 50 mg Q6H PRN PO PAIN; Start 06/16/17 at 02:00 Cyclobenzaprine HCl (Flexeril) 10 mg BID PRN PO MUSCLE SPASMS; Start 06/16/17 at 02:00 Hydrochlorothiazide (Hydrochlorothiazide) 25 mg DAILY PO Last administered on 09:26; Admin Dose 25 MG; Start 06/16/17 at 09:00 Benazepril HCl (Lotensin) 10 mg DAILY PO Last administered on 06/17/17 09:25; Admin Dose 10 MG; Start 06/16/17 at 09:00 Loratadine (Claritin) 10 mg DAILY PRN PO ALLERGIC REACTION; Start 06/16/17 at 02:00 Acetaminophen (Tylenol Tab) 650 mg Q6H PRN PO PAIN AND OR ELEVATED TEMP Last administered on 06/16/17 20:14; Admin Dose 650 MG; Start 06/16/17 at 06:30 Pantoprazole (Protonix Tab) 40 mg DAILY@06 PO Last administered on 06/17/17 05 :37; Admin Dose 40 MG; Start 06/17/17 at 06:00 Acetaminophen/ Hydrocodone Bitart (Alto (5/325)) 1 tab Q6H PRN PO PAIN Last administered on 06/17/17 17:38; Admin Dose 1 TAB; Start 06/17/17 at 13:30 MANDA DAVIDSON NP Jun 17, 2017 21:39
--- NOTE | 2017-06-18 01:53 | PN ---
DATE: 06/17/2017 SUBJECTIVE DATA: No acute changes. The patient is alert, feels good, looks comfortable. Denies pain. T-max yesterday was 100.6. T-current 98.7, pulse 90, respirations 20, blood pressure 117/74, saturation 98 percent on room air. MICROBIOLOGY: Blood and urine culture negative. DIAGNOSTICS: Lumbar spine MRI revealed moderate spondylosis at L5, S1. No significant stenosis. No evidence of epidural hemorrhage or sequela of the patient's epidural injection. ANTIMICROBIALS: The patient is on IV vancomycin and Rocephin. PHYSICAL EXAMINATION: GENERAL: This is a well nourished, well developed, middle-aged woman, who is alert, in no distress. HEENT: Head atraumatic and normocephalic. Sclerae are anicteric. Buccal mucosa is pink. NECK: Supple. LUNGS: Chest rise is symmetrical. Breath sounds are clear. HEART: S1, S2. ABDOMEN: Soft. Bowel sounds are present. EXTREMITIES: Without cyanosis or edema. SKIN: No jaundice. No cyanosis. ASSESSMENT: 1. Systemic inflammatory response syndrome with fevers, poss 2 to UTI. 2. Leukopenia with thrombocytopenia. 3. Chronic back pain status post epidural and steroid injection, last one was at the beginning of May. 4. History of sciatica. PLAN: The patient remains stable. So far, all cultures have been negative, and no evidence of discitis or osteomyelitis per spinal MRI. Her urinalysis at another facility was +, final cx not available yet. We are going to discontinue vancomycin. Continue Rocephin for now. F/u chest x-ray in a.m. Dictated By: Eve Weems NP /medina/cheli /Document#: [id number] QUAN
[2017-06-18 02:18] VITALS: BP 109/74; RESP 20
[2017-06-18] MEDS: CEFTRIAXONE 1 GM/50 ML (PMX) 50 ML IVPB SCH (02:49)
[2017-06-18] MEDS: traMADol 50 MG TAB PO PRN ×2 (04:36→17:26)
[2017-06-18] MEDS: PANTOPRAZOLE (EC) 40 MG TAB PO SCH (04:36)
[2017-06-18] MEDS: morphine 2 MG INJ IV PRN ×4 (05:15→23:00)
[2017-06-18 05:32] LABS: ABNORMAL IP MESSAGE 1; HEMATOCRIT 36.7 % (37.0-47.0); HEMOGLOBIN 12.6 g/dl (12.0-16.0); MEAN CORPUSCULAR HEMOGLOBIN 29.3 pg (29.0-33.0); MEAN CORPUSCULAR HGB CONC 34.3 g/dl (32.0-37.0); MEAN CORPUSCULAR VOLUME 85.3 fl (82.0-101.0); MEAN PLATELET VOLUME 11.2 fl (7.4-10.4); PLATELET COUNT 94 10^3/UL (140-415); WHITE BLOOD COUNT 3.5 10^3/ul (4.8-10.8)
[2017-06-18 05:45] LABS: POSITIVE DIFF @See below
--- NOTE | 2017-06-18 06:11 | CONS ---
DATE OF ADMISSION: 06/16/2017 DATE OF CONSULTATION: 06/18/2017 HISTORY OF PRESENT ILLNESS: I am seeing this patient for Dr. Huey Lenz. The patient is a 42-year-old, female, who presented on 06/16/2017 with a chief complaint of lower mid back pain, headache, muscle aches, and intermittent fever. The patient has had a history of chronic low back pain, usually in the mid back. She had an epidural injection in January 2017. On admission, her white count was 2600 with 66 polys, 20 lymphs, and 13 monocytes. Concern was for epidural abscess. She had an MRI of the lumbar spine which revealed desiccation L5-S1 without loss of height. The interpretation of the MRI was that there was moderate L5-S1 spondylosis. There was no sequelae of epidural injection. The patient's only temperature elevation recorded was on 06/16. It was 100.6. Her urinalysis had a pH of 6, specific gravity, 1.110, +1 ketone, 7 RBCs, no WBCs. Negative MRSA. Blood cultures are negative x24 hours. Urine cultures negative x24 hours. The patient states that she feels better today and has less pain, less headache, and has had no fever. Today, her white count is at 2600 with 31 polys, 5 bands, 40 lymphs, and 17 monocytes, indicating a marked shift to the left, indicating that this condition is most likely a viral illness. PAST MEDICAL HISTORY: Hypertension and gastroesophageal reflux. ALLERGIES: NO KNOWN ALLERGIES, EXCEPT TO PENICILLIN AND FISH- CONTAINING PRODUCTS. PHYSICAL EXAMINATION: GENERAL: Reveals a well-developed, well-nourished, female, who appears younger than her stated age. VITALS: Temperature is 98, pulse 93, respirations 16, blood pressure 104/69, O2 saturation on room air is 98 percent. NECK: Supple. HEENT: The pupils are equal, round, and reactive to light. CHEST: Clear to auscultation. HEART: Regular, somewhat rapid. ABDOMEN: Soft. No palpable organs or masses. MUSCULOSKELETAL: There is a mild lumbar muscle is stiffness in the paralumbar area. The deep tendon reflexes are intact. There is no meningismus, Kernig's, or Brudzinski sign. IMPRESSION: 1. Viral illness. 2. Headache and backache. 3. Chronic mid back pain. 4. Hypertension. RECOMMENDATIONS: The patient does not have any indication for antibiotics at this time; so, I am recommending discontinuing them. She can be discharged from an ID point of view, as soon as it is okay with the attending. I am seeing this patient for Dr. Huey Lenz. Dictated By: Hardy Gentile MD /medina/cheli /Document#: [id number]
[2017-06-18 06:31] LABS: ALBUMIN 3.3 g/dl (3.3-4.9); ALBUMIN/GLOBULIN RATIO 1.06; CALCIUM 9.3 mg/dl (8.4-10.2); CREATININE 0.73 mg/dl (0.44-1.00); POTASSIUM 3.4 mmol/L (3.5-5.1); TOTAL PROTEIN 6.4 g/dl (6.1-8.1)
[2017-06-18 08:06] VITALS: BP 111/74; RESP 18
[2017-06-18] MEDS: HYDROCHLOROTHIAZIDE 25 MG TAB PO SCH (08:44)
[2017-06-18] MEDS: BENAZEPRIL 10 MG TAB PO SCH (08:45)
[2017-06-18 08:56] LABS: EOSINOPHILS % (M) 3 % (0-7); GIANT THROMBO% (M) 1 % (0-0); MONOCYTES % (M) 4 % (0-11); PLATELET ESTIMATE DECREASED
[2017-06-18] MEDS: HYDROCODONE/APAP (5/325) TAB PO PRN (10:36)
--- NOTE | 2017-06-18 12:35 | PN ---
Date/Time of Note Date/Time of Note DATE: 06/18/17 TIME: 12:34 Assessment/Plan VTE Prophylaxis VTE Prophylaxis Intervention: ambulation Lines/Catheters IV Catheter Type (from Nrs): Peripheral IV Assessment/Plan Chief Complaint/Hosp Course 1. Patient has low back pain. 2. History of degenerative disc disease. 3. R/o diskitis. 4. History of sciatica. 5. Hypertension, controlled. 6. Neutropenia. 7.MRI lumbar area showed : 1). Moderate spondylosis at L5-S1 with subsequent mild effacement of both lateral recesses and moderate bilateral neural foraminal narrowing. No significant central stenosis. 2). The remaining lumbar spine is normal in appearance. 3). No evidence of epidural hemorrhage or sequelae of patient's epidural injection. 8. Hypopotassemia Problems: Assessment/Plan 1. replacement of K Subjective 24 Hr Interval Summary Constitutional: improved, no complaints Exam/Review of Systems Vital Signs Vitals Vital Signs Date Time Temp Pulse Resp B/P Pulse Ox O2 Delivery O2 Flow Rate FiO2 06/18/17 08:06 97.7 99 18 111/74 97 Intake and Output 06/17/17 06/17/17 06/18/17 15:00 23:00 07:00 Intake Total 100 ml 2020 ml 755 ml Balance 100 ml 2020 ml 755 ml Exam Constitutional: alert, oriented Musculoskeletal: joint tenderness (lumbosacral area) Results Result Diagram: 06/18/17 0429 06/18/17 0429 Results 24 hrs Laboratory Tests Test 06/18/17 04:29 White Blood Count 3.5 #L Red Blood Count 4.30 Hemoglobin 12.6 Hematocrit 36.7 L Mean Corpuscular Volume 85.3 Mean Corpuscular Hemoglobin 29.3 Mean Corpuscular Hemoglobin Concent 34.3 Red Cell Distribution Width 13.0 Platelet Count 94 L Mean Platelet Volume 11.2 H Neutrophils % Segmented Neutrophils % (Manual) 36 L Lymphocytes % Lymphocytes % (Manual) 53 H Monocytes % Monocytes % (Manual) 4 Eosinophils % Eosinophils % (Manual) 3 Basophils % Blast Cells % (Manual) 4 H Nucleated Red Blood Cells % 0.0 Neutrophils # Absolute Lymphocytes (Manual) 1.8 Lymphocytes # Monocytes # Absolute Monocytes (Manual) 0.1 L Eosinophils # Basophils # Nucleated Red Blood Cells # Platelet Estimate DECREASED Giant Platelets 1 H Sodium Level 140 Potassium Level 3.4 L Chloride Level 102 Carbon Dioxide Level 31 Anion Gap 10 Blood Urea Nitrogen 7 Creatinine 0.73 Glucose Level 117 Calcium Level 9.3 Total Bilirubin 0.0 L Direct Bilirubin 0.00 Indirect Bilirubin 0.0 Aspartate Amino Transf (AST/SGOT) 28 Alanine Aminotransferase (ALT/SGPT) 29 Alkaline Phosphatase 55 Total Protein 6.4 Albumin 3.3 Globulin 3.10 Albumin/Globulin Ratio 1.06 Medications Medications Current Medications Morphine Sulfate 2 mg 2 mg Q4H PRN IV PAIN Last administered on 06/18/17 08:48 ; Admin Dose 2 MG; Start 06/16/17 at 02:00 Ceftriaxone Sodium 50 ml @ 100 mls/hr Q24H IVPB Last administered on 02:49; Admin Dose 100 MLS/HR; Start 06/16/17 at 02:00 Sodium Chloride (NS) 1,000 ml @ 30 mls/hr Q24H IV Last administered on 22:17; Admin Dose 30 MLS/HR; Start 06/16/17 at 02:00 Tramadol HCl (Ultram) 50 mg Q6H PRN PO PAIN Last administered on 06/18/17 04: 36; Admin Dose 50 MG; Start 06/16/17 at 02:00 Cyclobenzaprine HCl (Flexeril) 10 mg BID PRN PO MUSCLE SPASMS Last administered on 06/18/17 10:35; Admin Dose 10 MG; Start 06/16/17 at 02:00 Hydrochlorothiazide (Hydrochlorothiazide) 25 mg DAILY PO Last administered on 08:44; Admin Dose 25 MG; Start 06/16/17 at 09:00 Benazepril HCl (Lotensin) 10 mg DAILY PO Last administered on 06/18/17 08:45; Admin Dose 10 MG; Start 06/16/17 at 09:00 Loratadine (Claritin) 10 mg DAILY PRN PO ALLERGIC REACTION; Start 06/16/17 at 02:00 Acetaminophen (Tylenol Tab) 650 mg Q6H PRN PO PAIN AND OR ELEVATED TEMP Last administered on 06/16/17 20:14; Admin Dose 650 MG; Start 06/16/17 at 06:30 Pantoprazole (Protonix Tab) 40 mg DAILY@06 PO Last administered on 06/18/17 04 :36; Admin Dose 40 MG; Start 06/17/17 at 06:00 Acetaminophen/ Hydrocodone Bitart ([place] (5/325)) 1 tab Q6H PRN PO PAIN Last administered on 06/18/17t 10:36; Admin Dose 1 TAB; Start 06/17/17 at 13:30 CYRUS FALK Jun 18, 2017 12:35
[2017-06-18] MEDS ORDERED: POTASSIUM CHLORIDE 20 MEQ POWDER FOR ORAL SOLN PO ONE (13:00)
[2017-06-18 14:56] VITALS: BP 95/64; RESP 18
--- NOTE | 2017-06-18 19:16 | CONS ---
Date/Time of Note Date/Time of Note DATE: 06/18/17 TIME: 19:07 Assessment/Plan Assessment/Plan Chief Complaint/Hosp Course ID PROGRESS NOTE CURRENT ABX: =>Ceftriaxone 24H INTERVAL SUMMARY * Clinically stable, calm, resting comfortable, no fevers * Back pain is acute on chronic issue EXAM GEN: VSS, NAD, resting HEENT: Unremarkable NECK: supple CVS: RRR, CHEST: Equal chest rise bilaterally without dyspnea on observation ABD: Soft, NT, EXT: warm SKIN: No rash, no diaphoresis ID ASSESSMENT 42 yo F admit with: 1. SIRS due to UTI, pyelonephritis w/headache + back pain 2. UTI -> culture sent 12 hours post IV ABX URINE CULTURE Preliminary Organism 1 STAPHYLOCOCCUS SPECIES COLONY COUNT 10,000 - 20,000 CFU/ml 3. Chronic mid back pain * MRI lumbar area showed : 1). Moderate spondylosis at L5-S1 with subsequent mild effacement of both lateral recesses and moderate bilateral neural foraminal narrowing. No significant central stenosis. 4. Hx of epidural spinal pain injections 5. Hypertension. (-) MRSA nares ABX ALLERGY: PCN CURRENT ABX: =>Ceftriaxone ID RECOMMENDATIONS 1. Await final result staph species in urine 2. Will check ESR in am . . . . Problems: Consultation Date/Type/Reason Admit Date/Time Jun 16, 2017 at 00:01 Initial Consult Date Type of Consultation: ID Exam/Review of Systems Vital Signs Vitals Vital Signs Date Time Temp Pulse Resp B/P Pulse Ox O2 Delivery O2 Flow Rate FiO2 06/18/17 14:56 97.6 101 18 95/64 96 Intake and Output 06/17/17 06/17/17 06/18/17 15:00 23:00 07:00 Intake Total 100 ml 2020 ml 755 ml Balance 100 ml 2020 ml 755 ml Results Result Diagram: 06/18/17 0429 06/18/17 0429 Results 24 hrs Laboratory Tests Test 06/18/17 04:29 White Blood Count 3.5 #L Red Blood Count 4.30 Hemoglobin 12.6 Hematocrit 36.7 L Mean Corpuscular Volume 85.3 Mean Corpuscular Hemoglobin 29.3 Mean Corpuscular Hemoglobin Concent 34.3 Red Cell Distribution Width 13.0 Platelet Count 94 L Mean Platelet Volume 11.2 H Neutrophils % Segmented Neutrophils % (Manual) 36 L Lymphocytes % Lymphocytes % (Manual) 53 H Monocytes % Monocytes % (Manual) 4 Eosinophils % Eosinophils % (Manual) 3 Basophils % Blast Cells % (Manual) 4 H Nucleated Red Blood Cells % 0.0 Neutrophils # Absolute Lymphocytes (Manual) 1.8 Lymphocytes # Monocytes # Absolute Monocytes (Manual) 0.1 L Eosinophils # Basophils # Nucleated Red Blood Cells # Platelet Estimate DECREASED Giant Platelets 1 H Sodium Level 140 Potassium Level 3.4 L Chloride Level 102 Carbon Dioxide Level 31 Anion Gap 10 Blood Urea Nitrogen 7 Creatinine 0.73 Glucose Level 117 Calcium Level 9.3 Total Bilirubin 0.0 L Direct Bilirubin 0.00 Indirect Bilirubin 0.0 Aspartate Amino Transf (AST/SGOT) 28 Alanine Aminotransferase (ALT/SGPT) 29 Alkaline Phosphatase 55 Total Protein 6.4 Albumin 3.3 Globulin 3.10 Albumin/Globulin Ratio 1.06 Medications Medications Current Medications Morphine Sulfate 2 mg 2 mg Q4H PRN IV PAIN Last administered on 06/18/17 18:40 ; Admin Dose 2 MG; Start 06/16/17 at 02:00 Ceftriaxone Sodium 50 ml @ 100 mls/hr Q24H IVPB Last administered on 02:49; Admin Dose 100 MLS/HR; Start 06/16/17 at 02:00 Sodium Chloride (NS) 1,000 ml @ 30 mls/hr Q24H IV Last administered on 22:17; Admin Dose 30 MLS/HR; Start 06/16/17 at 02:00 Tramadol HCl (Ultram) 50 mg Q6H PRN PO PAIN Last administered on 06/18/17 17: 26; Admin Dose 50 MG; Start 06/16/17 at 02:00 Cyclobenzaprine HCl (Flexeril) 10 mg BID PRN PO MUSCLE SPASMS Last administered on 06/18/17 10:35; Admin Dose 10 MG; Start 06/16/17 at 02:00 Hydrochlorothiazide (Hydrochlorothiazide) 25 mg DAILY PO Last administered on 08:44; Admin Dose 25 MG; Start 06/16/17 at 09:00 Benazepril HCl (Lotensin) 10 mg DAILY PO Last administered on 06/18/17 08:45; Admin Dose 10 MG; Start 06/16/17 at 09:00 Loratadine (Claritin) 10 mg DAILY PRN PO ALLERGIC REACTION; Start 06/16/17 at 02:00 Acetaminophen (Tylenol Tab) 650 mg Q6H PRN PO PAIN AND OR ELEVATED TEMP Last administered on 06/16/17 20:14; Admin Dose 650 MG; Start 06/16/17 at 06:30 Pantoprazole (Protonix Tab) 40 mg DAILY@06 PO Last administered on 06/18/17 04 :36; Admin Dose 40 MG; Start 06/17/17 at 06:00 Acetaminophen/ Hydrocodone Bitart ([place] (5/325)) 1 tab Q6H PRN PO PAIN Last administered on 06/18/17 10:36; Admin Dose 1 TAB; Start 06/17/17 at 13:30 BRAYAN QUIJANO NP Jun 18, 2017 19:16
[2017-06-18 20:09] VITALS: BP 110/67; RESP 18
[2017-06-19] MEDS: CEFTRIAXONE 1 GM/50 ML (PMX) 50 ML IVPB SCH (01:56)
[2017-06-19] MEDS: SOD CHLORIDE 0.9% 1,000 ML IV SCH ×2 (01:56→05:10)
[2017-06-19 02:06] VITALS: BP 100/57; RESP 17
[2017-06-19] MEDS: PANTOPRAZOLE (EC) 40 MG TAB PO SCH (05:10)
[2017-06-19 05:34] LABS: BASOPHIL # 0.1 10^3/ul (0.0-0.1); BASOPHILS % 0.9 % (0.0-2.0); EOSINOPHILS # 0.1 10^3/ul (0.0-0.5); EOSINOPHILS % 1.4 % (0.0-7.0); HEMATOCRIT 35.2 % (37.0-47.0); LYMPHOCYTES # 4.7 10^3/ul (0.8-2.9); MEAN CORPUSCULAR HEMOGLOBIN 29.1 pg (29.0-33.0); MEAN CORPUSCULAR HGB CONC 34.1 g/dl (32.0-37.0); MEAN CORPUSCULAR VOLUME 85.4 fl (82.0-101.0); MEAN PLATELET VOLUME 11.1 fl (7.4-10.4); MONOCYTE # 0.4 10^3/ul (0.3-0.9); MONOCYTES % 6.2 % (0.0-11.0); NEUTROPHIL # 1.2 10^3/ul (1.6-7.5); NEUTROPHILS % 18.8 % (39.0-77.0); PLATELET COUNT 102 10^3/UL (140-415); RED BLOOD COUNT 4.12 10^6/ul (4.20-5.40); RED CELL DISTRIBUTION WIDTH 12.9 % (11.5-14.5); WHITE BLOOD COUNT 6.4 10^3/ul (4.8-10.8)
[2017-06-19 05:38] LABS: LYMPHOCYTES % 72.5 % (15.0-51.0); POSITIVE DIFF @See below
[2017-06-19 06:26] LABS: CREATININE 0.7 mg/dl (0.44-1.00); POTASSIUM 3.6 mmol/L (3.5-5.1)
[2017-06-19 08:13] VITALS: BP 100/61; RESP 20
[2017-06-19] MEDS: morphine 2 MG INJ IV PRN ×3 (08:59→18:02)
[2017-06-19] MEDS: HYDROCHLOROTHIAZIDE 25 MG TAB PO SCH (08:59)
[2017-06-19] MEDS: BENAZEPRIL 10 MG TAB PO SCH (08:59)
[2017-06-19] MEDS: HYDROCODONE/APAP (5/325) TAB PO PRN (11:22)
--- NOTE | 2017-06-19 12:34 | CONS ---
Date/Time of Note Date/Time of Note DATE: 06/19/17 TIME: 12:26 Assessment/Plan Assessment/Plan Chief Complaint/Hosp Course ID PROGRESS NOTE CURRENT ABX: =>Ceftriaxone 24H INTERVAL SUMMARY * A/A/O, no f/c/n/v/d/TRUJILLO/dysuria/back pain == SYMPTOMS RESOLVED * Urine Cx (+)ConS = likely contaminated sample from skin * Back pain/Headache resolved * ESR 16, CRP <0.5 = WNL, no evidence of spine infection EXAM GEN: VSS, NAD, resting HEENT: Unremarkable NECK: supple CVS: RRR, CHEST: Equal chest rise bilaterally without dyspnea on observation ABD: Soft, NT, EXT: warm SKIN: No rash, no diaphoresis ID ASSESSMENT 42 yo F admit with: 1. SIRS due to probable viral syndrome per Dr. Gentile 2. False + Urine sample = SKIN CONTAMINATED SAMPLE URINE CULTURE Organism 1 STAPHYLOCOCCUS = COAGULASE NEGATIVE COLONY COUNT 10,000 - 20,000 CFU/ml 3. Chronic mid back pain * MRI lumbar area showed : 1). Moderate spondylosis at L5-S1 with subsequent mild effacement of both lateral recesses and moderate bilateral neural foraminal narrowing. No significant central stenosis. 4. Hx of epidural spinal pain injections 5. Hypertension. (-) MRSA nares ABX ALLERGY: PCN CURRENT ABX: =>Ceftriaxone => DC today ID RECOMMENDATIONS 1. DC ABX - May DC home OFF ABX when cleared by primary 2. Urine Cx (+)ConS = consistent w/ contaminated sample from skin * Back pain/Headache resolved * ESR 16, CRP <0.5 = WNL, no evidence of spine infection 3. Results of work up including false + urine cx, (-) ESR, (-) CRP -- DDx of viral syndrome per Dr. Gentile all d/w patient who expresses understanding/ agreement/gratitude * Patient is relieved, no evidence true UTI/Pyelo/nor lumbar infx . . . . . Problems: Consultation Date/Type/Reason Admit Date/Time Jun 16, 2017 at 00:01 Type of Consultation: ID Exam/Review of Systems Vital Signs Vitals Vital Signs Date Time Temp Pulse Resp B/P Pulse Ox O2 Delivery O2 Flow Rate FiO2 06/19/17 08:13 97.9 94 20 100/61 100 Intake and Output 906/18/17 06/19/17 15:00 23:00 07:00 Intake Total 1080 ml 1250 ml Balance 1080 ml 1250 ml Results Result Diagram: 06/19/17 0432 06/19/17 0432 Results 24 hrs Laboratory Tests Test 06/19/17 04:32 White Blood Count 6.4 # Red Blood Count 4.12 L Hemoglobin 12.0 Hematocrit 35.2 L Mean Corpuscular Volume 85.4 Mean Corpuscular Hemoglobin 29.1 Mean Corpuscular Hemoglobin Concent 34.1 Red Cell Distribution Width 12.9 Platelet Count 102 L Mean Platelet Volume 11.1 H Neutrophils % 18.8 L Lymphocytes % 72.5 H Monocytes % 6.2 Eosinophils % 1.4 Basophils % 0.9 Nucleated Red Blood Cells % 0.0 Neutrophils # 1.2 L Lymphocytes # 4.7 H Monocytes # 0.4 Eosinophils # 0.1 Basophils # 0.1 Nucleated Red Blood Cells # 0.0 Erythrocyte Sedimentation Rate 16 Sodium Level 139 Potassium Level 3.6 Chloride Level 104 Carbon Dioxide Level 27 Anion Gap 12 Blood Urea Nitrogen 7 Creatinine 0.70 Glucose Level 97 Calcium Level 9.0 C-Reactive Protein < 0.5 Medications Medications Current Medications Morphine Sulfate 2 mg 2 mg Q4H PRN IV PAIN Last administered on 06/19/17 08:59 ; Admin Dose 2 MG; Start 06/16/17 at 02:00 Ceftriaxone Sodium 50 ml @ 100 mls/hr Q24H IVPB Last administered on 01:56; Admin Dose 100 MLS/HR; Start 06/16/17 at 02:00 Sodium Chloride (NS) 1,000 ml @ 30 mls/hr Q24H IV Last administered on 05:10; Admin Dose 30 MLS/HR; Start 06/16/17 at 02:00 Tramadol HCl (Ultram) 50 mg Q6H PRN PO PAIN Last administered on 06/18/17 17: 26; Admin Dose 50 MG; Start 06/16/17 at 02:00 Cyclobenzaprine HCl (Flexeril) 10 mg BID PRN PO MUSCLE SPASMS Last administered on 06/18/17 10:35; Admin Dose 10 MG; Start 06/16/17 at 02:00 Hydrochlorothiazide (Hydrochlorothiazide) 25 mg DAILY PO Last administered on 08:59; Admin Dose 25 MG; Start 06/16/17 at 09:00 Benazepril HCl (Lotensin) 10 mg DAILY PO Last administered on 06/19/17 08:59; Admin Dose 10 MG; Start 06/16/17 at 09:00 Loratadine (Claritin) 10 mg DAILY PRN PO ALLERGIC REACTION; Start 06/16/17 at 02:00 Acetaminophen (Tylenol Tab) 650 mg Q6H PRN PO PAIN AND OR ELEVATED TEMP Last administered on 06/16/17 20:14; Admin Dose 650 MG; Start 06/16/17 at 06:30 Pantoprazole (Protonix Tab) 40 mg DAILY@06 PO Last administered on 06/19/17 05 :10; Admin Dose 40 MG; Start 06/17/17 at 06:00 Acetaminophen/ Hydrocodone Bitart ([place] (5/325)) 1 tab Q6H PRN PO PAIN Last administered on 06/19/17 11:22; Admin Dose 1 TAB; Start 06/17/17 at 13:30 BRAYAN QUIJANO NP Jun 19, 2017 12:34
[2017-06-19 14:00] VITALS: BP 99/60; RESP 20
[2017-06-19] MEDS: traMADol 50 MG TAB PO PRN (14:36)
[2017-06-19] MEDS ORDERED: LORA10TA3 PO (17:57)
[2017-06-19] MEDS ORDERED: HYDR25TA6 PO (17:57)
[2017-06-19] MEDS ORDERED: CYCL-319 PO (17:57)
[2017-06-19] MEDS ORDERED: HYDR-3498 PO (17:57)
[2017-06-19] MEDS ORDERED: BENA10TA48 PO (17:57)
--- NOTE | 2017-06-19 17:58 | PDOCDIS ---
Discharge Instructions CONDITION Patient Condition: Stable HOME CARE INSTRUCTIONS: Special Diet: Regular ACTIVITY: Activity Restrictions: Slowly Increase Activity FOLLOW UP/APPOINTMENTS Follow-up Plan f/u own pcp 1 wk MARISA CUADRA MD Jun 19, 2017 17:58
--- NOTE | 2017-06-19 19:03 | PN ---
Date/Time of Note Date/Time of Note DATE: 06/19/17 TIME: 19:02 Assessment/Plan VTE Prophylaxis VTE Prophylaxis Intervention: other Lines/Catheters IV Catheter Type (from Nrsg): Peripheral IV Assessment/Plan Chief Complaint/Hosp Course BACK PAIN BETTER SIRS BETTER PAIN BETTER PLAN HOME Problems: Subjective 24 Hr Interval Summary Gastrointestinal: no complaints Genitourinary: no complaints Neurologic: no complaints Exam/Review of Systems Vital Signs Vitals Vital Signs Date Time Temp Pulse Resp B/P Pulse Ox O2 Delivery O2 Flow Rate FiO2 06/19/17 14:00 98.0 75 20 99/60 95 Intake and Output 06/18/17 06/18/17 06/19/17 15:00 23:00 07:00 Intake Total 1080 ml 1250 ml Balance 1080 ml 1250 ml Exam Respiratory: clear to auscultation Cardiovascular: regular rate and rhythm Gastrointestinal: soft Musculoskeletal: nl extremities to inspection Results Result Diagram: 06/19/17 0432 06/19/17 0432 Results 24 hrs Laboratory Tests Test 06/19/17 04:32 White Blood Count 6.4 # Red Blood Count 4.12 L Hemoglobin 12.0 Hematocrit 35.2 L Mean Corpuscular Volume 85.4 Mean Corpuscular Hemoglobin 29.1 Mean Corpuscular Hemoglobin Concent 34.1 Red Cell Distribution Width 12.9 Platelet Count 102 L Mean Platelet Volume 11.1 H Neutrophils % 18.8 L Lymphocytes % 72.5 H Monocytes % 6.2 Eosinophils % 1.4 Basophils % 0.9 Nucleated Red Blood Cells % 0.0 Neutrophils # 1.2 L Lymphocytes # 4.7 H Monocytes # 0.4 Eosinophils # 0.1 Basophils # 0.1 Nucleated Red Blood Cells # 0.0 Erythrocyte Sedimentation Rate 16 Sodium Level 139 Potassium Level 3.6 Chloride Level 104 Carbon Dioxide Level 27 Anion Gap 12 Blood Urea Nitrogen 7 Creatinine 0.70 Glucose Level 97 Calcium Level 9.0 C-Reactive Protein < 0.5 Medications Medications Current Medications Morphine Sulfate 2 mg 2 mg Q4H PRN IV PAIN Last administered on 06/19/17 18:02 ; Admin Dose 2 MG; Start 06/16/17 at 02:00 Sodium Chloride (NS) 1,000 ml @ 30 mls/hr Q24H IV Last administered on 05:10; Admin Dose 30 MLS/HR; Start 06/16/17 at 02:00 Tramadol HCl (Ultram) 50 mg Q6H PRN PO PAIN Last administered on 06/19/17 14: 36; Admin Dose 50 MG; Start 06/16/17 at 02:00 Cyclobenzaprine HCl (Flexeril) 10 mg BID PRN PO MUSCLE SPASMS Last administered on 06/18/17 10:35; Admin Dose 10 MG; Start 06/16/17 at 02:00 Hydrochlorothiazide (Hydrochlorothiazide) 25 mg DAILY PO Last administered on 08:59; Admin Dose 25 MG; Start 06/16/17 at 09:00 Benazepril HCl (Lotensin) 10 mg DAILY PO Last administered on 06/19/17 08:59; Admin Dose 10 MG; Start 06/16/17 at 09:00 Loratadine (Claritin) 10 mg DAILY PRN PO ALLERGIC REACTION; Start 06/16/17 at 02:00 Acetaminophen (Tylenol Tab) 650 mg Q6H PRN PO PAIN AND OR ELEVATED TEMP Last administered on 06/16/17 20:14; Admin Dose 650 MG; Start 06/16/17 at 06:30 Pantoprazole (Protonix Tab) 40 mg DAILY@06 PO Last administered on 06/19/17 05 :10; Admin Dose 40 MG; Start 06/17/17 at 06:00 Acetaminophen/ Hydrocodone Bitart ([place] (5/325)) 1 tab Q6H PRN PO PAIN Last administered on 06/19/17 11:22; Admin Dose 1 TAB; Start 06/17/17 at 13:30 MARISA CUADRA MD Jun 19, 2017 19:03
[2017-06-20 17:28] LABS: PATH REVIEW CH
[2017-06-21 13:21] LABS: BLAST% (M) 0 % (0-0)
== END 2017-06-19 18:25 | disposition home or self-care (01) | DRG 552 ==
LOC: PP2 06-16 00:01
PROVIDERS: ADMIT Internal Medicine Nephrology; ATTEND Internal Medicine Nephrology
DX: M47.27 Other spondylosis with radiculopathy, lumbosacral region (principal); R65.10 Systemic inflammatory response syndrome (SIRS) of non-infectious origin without acute organ dysfunction; D69.6 Thrombocytopenia, unspecified; D70.9 Neutropenia, unspecified; I10 Essential (primary) hypertension; M79.604 Pain in right leg; R51 Headache; E87.6 Hypokalemia
CPT/HCPCS: 72148; 80048; 80053; 81001; 85025; 85651; 86140; 87040; 87081; 87086; C9113; J0696; J2270; J3370; J7030; J7050